=== PATIENT | female | born 1975 | race African-American/Black ===

== ENCOUNTER → 2021-08-05 | Outpatient (CLI) | payer MEDICARE, MEDICAID ==
[~2021-08-05] MED LIST: AMLO10TA80 PO; ASPI-1497 PO; ATOR20TA65 PO; CINA30 MT; METO1TAB26 MT; METO25TA6 PO; PRO1 MT
== END | disposition home or self-care (01) ==
LOC: LAB 14:01
PROVIDERS: ATTEND Internal Medicine
DX: Z20.822 Contact with and (suspected) exposure to COVID-19 (principal)
CPT/HCPCS: 87426

== ENCOUNTER 2022-03-07 20:06 | Emergency (ER) | payer MEDICARE, MEDICAID ==
[~2022-03-07] VITALS: Ht 157.5 cm; Wt 78.0 kg
[~2022-03-07 20:06] MED LIST changes: -METO1TAB26 MT; -METO25TA6 PO
[2022-03-07] MEDS ORDERED: ASPIRIN 325MG EC TABLET PO ONE (23:00)
[2022-03-07 23:44] LABS: BASOPHILS % 0.8 % (0.0-2.0); EOSINOPHILS % 2.4 % (0.0-5.0); HEMATOCRIT. 32.6 % (36.0-48.0); HEMOGLOBIN. 10.5 g/dL (12.0-16.0); LYMPHOCYTES % 24.6 % (20.0-50.0); MEAN CORPUSCULAR HEMOGLOBIN 28.7 pg (28.0-32.0); MEAN CORPUSCULAR VOLUME 88.6 fL (81.0-99.0); MEAN PLATELET VOLUME 7.6 fl (7.4-10.4); MONOCYTES % 14.6 % (2.0-8.0); NEUTROPHILS % 57.6 % (40.0-76.0); PLATELET 312 x1000/uL (130-400); RED BLOOD CELL COUNT 3.67 mill/uL (4.2-5.4); RED CELL DISTRIBUTION WIDTH 18.4 % (11.6-14.6)
[2022-03-07 23:52] LABS: CHLORIDE 96 mEq/L (98-107)
[2022-03-08 02:36] VITALS: BP 115/75
== END 2022-03-08 02:36 | disposition home or self-care (01) ==
LOC: ER 20:06
DX: I12.0 Hypertensive chronic kidney disease with stage 5 chronic kidney disease or end stage renal disease (principal); N18.6 End stage renal disease
CPT/HCPCS: 36415; 71045; 80053; 83880; 84484; 85025; 93005; 99285

== ENCOUNTER → 2022-05-07 | Day surgery (SDC) | payer MEDICARE, MEDICAID ==
[~2022-05-07] VITALS: Ht 157.5 cm; Wt 80.0 kg
[~2022-05-07] MED LIST changes: +ACETAMINOPHEN 325MG TABLET PO PRN; +ATROPINE SULFATE 1MG/10ML SYR IV PRN; +CLOP-31 PO; +COR12 PO; +DIPHENHYDRAMINE 50MG/ML VIAL ONE; +FENTANYL CITRATE/PF 50MCG/ML 2ML VIAL ONE; +GABA-529 PO; +HEPARIN 1000 UNITS/ML 10ML ONE; +HYDRALAZINE 20MG/ML VIAL IV SCH; +IODIXANOL 320MG/ML 100 ML BOTTLE IV ONE; +ISOS10TA53 PO; +LIDOCAINE HCL/PF 1% 10 MG/ML 5ML VIAL ONE; +MIDAZOLAM HCL 2 MG/2 ML VIAL ONE; +SEVE800T8 PO; +TETRACAINE/BENZOCAINE/BUTAMBEN 20 GM SPRAY MM ONE; +VERAPAMIL HCL 2.5 MG/1 ML 2ML VIAL IV ONE
[2022-05-07 10:04] LABS: HEMOGLOBIN 9.9 g/dL (12.0-16.0); MEAN CORPUSCULAR HEMOGLOBIN 27.6 pg (28.0-32.0); MEAN CORPUSCULAR VOLUME 86.5 fL (81.0-99.0); PLATELET 189 x1000/uL (130-400); RED BLOOD CELL COUNT 3.59 mill/uL (4.2-5.4); RED CELL DISTRIBUTION WIDTH 18.6 % (11.6-14.6)
== END | disposition home or self-care (01) ==
LOC: CCL 05:48
DX: I25.110 Atherosclerotic heart disease of native coronary artery with unstable angina pectoris (principal); R07.9 Chest pain, unspecified; I12.0 Hypertensive chronic kidney disease with stage 5 chronic kidney disease or end stage renal disease; N18.6 End stage renal disease; E78.5 Hyperlipidemia, unspecified; Z79.82 Long term (current) use of aspirin; Z79.899 Other long term (current) drug therapy; Z99.2 Dependence on renal dialysis; Z98.890 Other specified postprocedural states; Z20.822 Contact with and (suspected) exposure to COVID-19
CPT/HCPCS: 36415; 80048; 85027; 87426; 93458; C1769; C1887; C1893; C9803; J0360; J1200; J1644; J2250; J3010; J3490; Q9967; 99152; 99153; G0500

== ENCOUNTER → 2024-07-08 | Day surgery (SDC) | payer MEDICARE, MEDICAID ==
[~2024-07-08] VITALS: Ht 157.5 cm; Wt 87.5 kg
[~2024-07-08] MED LIST changes: +AMLO5TAB88 PO; +CARV6.2548 PO; +DAPS100T PO; +ESCI20TA PO; -GABA-529 PO; +GABA-532 PO; +HYDR-459 PO; -HYDRALAZINE 20MG/ML VIAL IV SCH; +HYDRALAZINE 20MG/ML VIAL ONE; -ISOS10TA53 PO; +ISOS10TA8 PO; +LIDOCAINE HCL 1% 20ML VIAL ONE; -LIDOCAINE HCL/PF 1% 10 MG/ML 5ML VIAL ONE; +MYCO180T PO; +NIFE10CA59 MT; +PRED5TAB PO; -PRO1 MT; +PROT40 PO; +SODIUM CHLORIDE 0.45% 250 ML IV ONE; +SODIUM CHLORIDE 0.45% 500 ML IV ONE; +SODIUM CHLORIDE 0.9% 500 ML IV ONE; +SUCR500T PO; +TACR5CAP2 PO; +TEMA30CA PO; -TETRACAINE/BENZOCAINE/BUTAMBEN 20 GM SPRAY MM ONE; +TRAZ-251 PO; +VALC450 PO
[2024-07-08 07:01] LABS: HEMATOCRIT. 42.4 % (36.0-48.0); HEMOGLOBIN. 13.1 g/dL (12.0-16.0); MEAN CORPUSCULAR HEMOGLOBIN 26.9 pg (28.0-32.0); MEAN CORPUSCULAR VOLUME 86.7 fL (81.0-99.0); MEAN PLATELET VOLUME 8.4 fl (7.4-10.4); PLATELET 210 x1000/uL (130-400); RED BLOOD CELL COUNT 4.89 mill/uL (4.2-5.4); RED CELL DISTRIBUTION WIDTH 16.5 % (11.6-14.6); WHITE BLOOD COUNT 4.6 x1000/uL (4.5-11.0)
[2024-07-08 07:04] LABS: DIFFERENTIAL COMMENT 1
[2024-07-08 07:07] LABS: INR 0.9; PARTIAL THROMBOPLASTIN TIME 22.3 sec (23.4-31.0); PROTHROMBIN TIME 10.6 sec (9.6-11.0)
[2024-07-08 07:09] LABS: POTASSIUM 3.6 mEq/L (3.5-5.1)
[2024-07-08 07:11] LABS: CALCIUM 10.7 mg/dL (8.7-10.4)
[2024-07-08 07:15] LABS: CREATININE 1.2 mg/dL (0.6-1.0)
[2024-07-08 07:16] LABS: UCG SCREEN NEGATIVE
[2024-07-08] MEDS: SODIUM CHLORIDE 0.45% 250 ML IV ONE (11:30)
[2024-07-09 15:38] LABS: ANISOCYTOSIS 1+; PLATELET ESTIMATE NORMAL
== END | disposition home or self-care (01) ==
LOC: CCL 06:16
PROVIDERS: ATTEND Internal Medicine
DX: I25.110 Atherosclerotic heart disease of native coronary artery with unstable angina pectoris (principal); I13.2 Hypertensive heart and chronic kidney disease with heart failure and with stage 5 chronic kidney disease, or end stage renal disease; I50.32 Chronic diastolic (congestive) heart failure; N18.6 End stage renal disease; I27.20 Pulmonary hypertension, unspecified; E78.5 Hyperlipidemia, unspecified; F41.9 Anxiety disorder, unspecified; G89.29 Other chronic pain; I08.3 Combined rheumatic disorders of mitral, aortic and tricuspid valves; Z79.899 Other long term (current) drug therapy; Z94.0 Kidney transplant status; Z95.5 Presence of coronary angioplasty implant and graft; Z99.2 Dependence on renal dialysis; Z98.890 Other specified postprocedural states
CPT/HCPCS: 93458; 80048; 81025; 85025; 85610; 85730; 36415; C1893; C1769 ×3; J3010; Q9967; J1200; J1644 ×2; J0360; J3490 ×2; J2250; C1887; 99152; G0500

== ENCOUNTER 2025-08-24 07:00 | Emergency (ER) | payer MEDICARE, MEDICAID ==
[~2025-08-24] VITALS: Ht 170.2 cm; Wt 100.0 kg
[~2025-08-24 07:00] MED LIST changes: -ACETAMINOPHEN 325MG TABLET PO PRN; -AMLO10TA80 PO; -ATROPINE SULFATE 1MG/10ML SYR IV PRN; -CINA30 MT; -CLOP-31 PO; -COR12 PO; -DAPS100T PO; -DIPHENHYDRAMINE 50MG/ML VIAL ONE; -FENTANYL CITRATE/PF 50MCG/ML 2ML VIAL ONE; +GABA-1180 PO; -GABA-532 PO; -HEPARIN 1000 UNITS/ML 10ML ONE; -HYDR-459 PO; -HYDRALAZINE 20MG/ML VIAL ONE; -IODIXANOL 320MG/ML 100 ML BOTTLE IV ONE; -ISOS10TA8 PO; -LIDOCAINE HCL 1% 20ML VIAL ONE; -MIDAZOLAM HCL 2 MG/2 ML VIAL ONE; -NIFE10CA59 MT; -SEVE800T8 PO; -SODIUM CHLORIDE 0.45% 250 ML IV ONE; -SODIUM CHLORIDE 0.45% 500 ML IV ONE; -SODIUM CHLORIDE 0.9% 500 ML IV ONE; -SUCR500T PO; -TEMA30CA PO; -TRAZ-251 PO; -VALC450 PO; -VERAPAMIL HCL 2.5 MG/1 ML 2ML VIAL IV ONE
[2025-08-24 07:11] VITALS: BP 129/61; PULSE 71; RESP 18; TEMP 98.5; O2SAT 100
== END 2025-08-24 10:12 | disposition left against medical advice (07) ==
LOC: ER 08:09
DX: T78.40XA Allergy, unspecified, initial encounter (principal); Z53.21 Procedure and treatment not carried out due to patient leaving prior to being seen by health care provider; X58.XXXA Exposure to other specified factors, initial encounter; Y93.89 Activity, other specified; Y92.89 Other specified places as the place of occurrence of the external cause; Y99.8 Other external cause status
CPT/HCPCS: 99281; A4606

== ENCOUNTER 2025-08-28 17:11 | Emergency (ER) | payer MEDICARE, MEDICAID ==
[~2025-08-28] VITALS: Ht 167.6 cm; Wt 95.0 kg
[2025-08-28 17:24] VITALS: TEMP 36.8; O2SAT 98
[2025-08-28] MEDS ORDERED: DIPHENHYDRAMINE 50MG CAPSULE PO ONE (20:45)
[2025-08-28] MEDS: FAMOTIDINE 20MG TABLET PO ONE (20:54)
[2025-08-28] MEDS: DIPHENHYDRAMINE 25MG CAPSULE PO SCH (20:54)
[2025-08-28] MEDS ORDERED: EPIN0.3P3 IM (21:32)
[2025-08-28] MEDS ORDERED: FAMO-135 MT (21:32)
[2025-08-28 22:13] VITALS: BP 129/60; PULSE 69; RESP 15; O2SAT 99
== END 2025-08-28 22:17 | disposition home or self-care (01) ==
LOC: ER 17:11
DX: T78.40XA Allergy, unspecified, initial encounter (principal); I10 Essential (primary) hypertension; Z79.899 Other long term (current) drug therapy; Z79.624 Long term (current) use of inhibitors of nucleotide synthesis; Z79.621 Long term (current) use of calcineurin inhibitor; Z79.82 Long term (current) use of aspirin; Z79.52 Long term (current) use of systemic steroids; Y92.89 Other specified places as the place of occurrence of the external cause
CPT/HCPCS: 99283; Q0163